=== PATIENT | male | born 1985 | race African-American/Black ===

== ENCOUNTER 2019-03-04 20:48 | Emergency (ER) | payer MEDICAID ==
[~2019-03-04] VITALS: Ht 172.7 cm; Wt 56.7 kg
[~2019-03-04 20:48] MED LIST: BACTRIM DS TAB1 EAC1 ORAL; IBUPROFEN600 MG ORAL; KEFLEX500 MG ORAL; MUPIROCIN22 GM TOPIC; NORCO 5-325 TA1 EACH ORAL
[2019-03-04] MEDS ORDERED: CEPHALEXIN500 M1 ORAL (21:03)
--- NOTE | 2019-03-04 21:07 | Emergency Room Report ---
History of Present Illness General Chief Complaint: Lower Extremity Injury Source: Patient Present Illness HPI Disclaimer: Please note that this report is being documented using DRAGON technology. This can lead to erroneous entry secondary to incorrect interpretation by the dictating instrument. HPI: 33-year-old otherwise healthy male presents for evaluation of redness and swelling around the right knee. The patient noticed some pustules around the right knee approximately 3 days ago with worsening surrounding redness. Denies any bite, trauma, skin breakdown. He does have a history of ingrown hairs. He popped 1 of these pustules and had some purulent drainage without recurrence of accumulation. He does report any injury, pain in the knee joint itself. He notes warmth and tenderness over the skin. Otherwise denies any fevers, vomiting, diarrhea, abdominal pain or any other signs of systemic illness. PMH: Denies PSH: Denies Allergies: None reported Social Hx: [place] drug or alcohol abuse Allergies: Coded Allergies: No Known Allergies (Unverified , 03/04/19) Nursing Documentation-PMH Hx Asthma: Yes - pneumothorax history Review of Systems All Other Systems: negative except mentioned in HPI Physical Exam Vital Signs Date Time Temp Pulse Resp B/P (MAP) Pulse Ox O2 Delivery O2 Flow Rate FiO2 03/04/19 20:51 98.1 58 18 115/70 (85) 97 Room Air General: Awake and alert, no acute distress, afebrile HEENT: NC/AT. EOMI. Resp: Normal work of breathing Skin: Intact, no bleeding, no purulent drainage from the right knee. There is overlying redness over the anterior aspect of the right knee and 2 small pustules without deep fluctuance. Warm to the touch, no edema MSK: Normal tone and bulk. Moving all extremities. No obvious deformity. No tenderness over the anterior, posterior, lateral medial aspect of the right knee. No joint effusion. Ambulate in without difficulty. Neuro: Awake and alert. Mentating appropriately. Medical Decision Making Diagnostic Impression: Primary Impression: Cellulitis of right knee ER Course 33-year-old male presents for evaluation of redness and drainage from the right knee. He appears to had 2 small pustules which have now been broken without obvious reaccumulation of an abscess. Appears to have a superficial cellulitis without involvement of the joint and is overall nontoxic-appearing. We will start antibiotics for 1 week and he can follow-up with his PMD. We discussed reasons to return to the emergency department. He understands and agrees with this treatment plan. Last Vital Signs Date Time Temp Pulse Resp B/P (MAP) Pulse Ox O2 Delivery O2 Flow Rate FiO2 03/04/19 20:51 98.1 58 18 115/70 (85) 97 Room Air Disposition: HOME, SELF-CARE Condition: Stable Scripts Cephalexin* (CEPHALEXIN*) 500 Mg Tablet 500 MG ORAL EVERY 12 HOURS for 7 Days, #14 CAP Prov: Tod Shaikh MD 03/04/19 Referrals: [facility] Patient Instructions: Cellulitis Additional Instructions: Please follow-up with your primary care doctor in the next 1 to 3 days to discuss this emergency department visit and for reevaluation. If you have any new or worsening symptoms please return to the emergency department for reevaluation. He will be started on antibiotics for 5 days. Please take the entire prescribed amount of antibiotics even if symptoms improve over the next few days. Tod Shaikh MD Mar 04, 2019 21:06
[2019-03-04 21:10] VITALS: BP 119/73
== END 2019-03-04 21:10 | disposition home or self-care (01) ==
LOC: EMR 21:05
DX: L03.115 Cellulitis of right lower limb (principal); J45.909 Unspecified asthma, uncomplicated
CPT/HCPCS: 99282

== ENCOUNTER 2020-05-30 12:19 | Emergency (ER) | payer MEDICARE, MEDICAID ==
[~2020-05-30] VITALS: Ht 172.7 cm; Wt 58.1 kg
[~2020-05-30 12:19] MED LIST changes: +CEPHALEXIN500 M1 ORAL
--- NOTE | 2020-05-30 12:38 | Emergency Room Report ---
History of Present Illness General Chief Complaint: General Complaint Source: Patient Present Illness HPI Disclaimer: Please note that this report is being documented using DRAGON technology. This can lead to erroneous entry secondary to incorrect interpretation by the dictating instrument. HPI: 34-year-old otherwise healthy male presents requesting COVID-19 testing. Patient had cousin stay over his house over the weekend. Test result returned positive for COVID-19 this morning. Patient is asymptomatic and denies nasal congestion, sore throat, cough, shortness of breath, chest pain, fever, chills, vomiting, diarrhea or other changes in his health. Requesting COVID-19 test. PMH: Denied PSH: Denied Allergies: Denied Social Hx: Denied Allergies: Coded Allergies: No Known Allergies (Unverified , 03/04/19) COVID-19 Screening Contact w/high risk pt: No Experienced COVID-19 symptoms?: No COVID-19 Testing performed SERVICE ADMINISTRATOR: No Nursing Documentation-PMH Past Medical History: No History, Except For Hx Asthma: Yes - pneumothorax history Review of Systems All Other Systems: negative except mentioned in HPI Physical Exam Vital Signs Date Time Temp Pulse Resp B/P (MAP) Pulse Ox O2 Delivery O2 Flow Rate FiO2 05/30/20 12:25 98.2 77 19 117/81 (93) 96 Room Air General: Awake and alert, no acute distress HEENT: NC/AT. EOMI. Cardiovascular: RRR. S1 and S2 normal. No murmur appreciated Resp: Normal work of breathing. No cough, wheezing or crackles appreciated Skin: Intact. No abrasions, laceration or rash over the exposed skin MSK: Normal tone and bulk. Moving all extremities. No obvious deformity. Neuro: Awake and alert. Mentating appropriately. Medical Decision Making Diagnostic Impression: Primary Impression: Exposure to COVID-19 virus ER Course Well-appearing 34-year-old male presents requesting COVID-19 test after exposure to COVID-19 positive individual. Physical exam is reassuring. Patient has no symptoms. Unfortunately due to limited testing supply we are unable to offer testing to this patient at this time. We will refer him to outpatient testing centers. Do not believe he requires emergent labs or imaging. Stable for outpatient follow-up. Return precautions discussed. Isolation precautions discussed. Last Vital Signs Date Time Temp Pulse Resp B/P (MAP) Pulse Ox O2 Delivery O2 Flow Rate FiO2 05/30/20 12:25 98.2 77 19 117/81 (93) 96 Room Air Disposition: HOME, SELF-CARE Condition: Stable Patient Instructions: Viral Respiratory Infection Additional Instructions: Follow-up for outpatient Covid testing with one of the centers listed in your discharge paperwork. Call your primary physician as soon as possible to discuss emergency department visit. You may require reevaluation or further testing per your doctor's recommendations. Limit your contact with others as much as possible over the next 14 days. Stay minimum of 6 feet away from others, do not attend large gatherings and clean and disinfect all heavily used surfaces. Follow CDC guidelines for isolation and infection prevention. If you experience any new or worsening symptoms discussed with your doctor or return to the emergency department for reevaluation. Tod Shaikh MD May 30, 2020 12:38
[2020-05-30 12:55] VITALS: BP 115/76
[2020-05-30 13:08] VITALS: BP 112/72
== END 2020-05-30 13:08 | disposition home or self-care (01) ==
LOC: EMR 12:53
DX: Z20.828 Contact with and (suspected) exposure to other viral communicable diseases (principal)
CPT/HCPCS: 99281